=== PATIENT | male | born 1945 | race Two or more races ===

== ENCOUNTER 2019-02-10 05:10 | Day surgery (SDC) | payer OTHER ==
[~2019-02-10 05:10] MED LIST: LISINOPRIL20 MG PO
== END 2019-02-10 12:55 | disposition home or self-care (01) ==
LOC: CIR.AMB 05:10
DX: C67.0 Malignant neoplasm of trigone of bladder (principal); C67.2 Malignant neoplasm of lateral wall of bladder; C67.4 Malignant neoplasm of posterior wall of bladder; C67.5 Malignant neoplasm of bladder neck; N32.89 Other specified disorders of bladder; N30.20 Other chronic cystitis without hematuria

== ENCOUNTER → 2019-04-06 10:21 | Outpatient (CLI) | payer OTHER | END | disposition home or self-care (01) | LOC: LAB 10:21 | DX: N30.00 Acute cystitis without hematuria (principal); B96.89 Other specified bacterial agents as the cause of diseases classified elsewhere ==

== ENCOUNTER → 2019-04-21 14:36 | Outpatient (CLI) | payer OTHER | END | disposition home or self-care (01) | LOC: LAB 14:36 | DX: N30.00 Acute cystitis without hematuria (principal) ==

== ENCOUNTER → 2019-05-20 12:56 | Outpatient (CLI) | payer OTHER | END | disposition home or self-care (01) | LOC: LAB 12:56 | DX: N30.00 Acute cystitis without hematuria (principal) ==

== ENCOUNTER → 2019-07-14 14:21 | Outpatient (CLI) | payer OTHER | END | disposition home or self-care (01) | LOC: LAB 14:21 | DX: N30.00 Acute cystitis without hematuria (principal) ==

== ENCOUNTER 2019-07-28 16:12 | Outpatient (CLI) | payer OTHER | END 2019-07-28 16:16 | disposition home or self-care (01) | LOC: LAB 16:12 | DX: N30.00 Acute cystitis without hematuria (principal) ==

== ENCOUNTER 2019-09-27 13:36 | Outpatient (CLI) | payer OTHER | END 2019-09-27 13:39 | disposition home or self-care (01) | LOC: LAB 13:36 | DX: N30.00 Acute cystitis without hematuria (principal) ==

== ENCOUNTER → 2019-12-03 12:14 | Outpatient (CLI) | payer OTHER | END | disposition home or self-care (01) | LOC: LAB 12:14 | PROVIDERS: ATTEND Urology | DX: N30.00 Acute cystitis without hematuria (principal) ==

== ENCOUNTER 2020-06-24 12:14 | Outpatient (CLI) | payer OTHER | END 2020-06-24 12:21 | disposition home or self-care (01) | LOC: LAB 12:14 | PROVIDERS: ATTEND Urology | DX: N30.00 Acute cystitis without hematuria (principal); B96.29 Other Escherichia coli [E. coli] as the cause of diseases classified elsewhere ==

== ENCOUNTER 2020-07-10 10:48 | Outpatient (CLI) | payer OTHER | END 2020-07-10 10:55 | disposition home or self-care (01) | LOC: LAB 10:48 | PROVIDERS: ATTEND Urology | DX: C61 Malignant neoplasm of prostate (principal); N39.0 Urinary tract infection, site not specified; N39.41 Urge incontinence; C67.0 Malignant neoplasm of trigone of bladder ==

== ENCOUNTER 2021-02-16 11:03 | Outpatient (CLI) | payer OTHER | END 2021-02-16 11:04 | disposition home or self-care (01) | LOC: LAB 11:03 | PROVIDERS: ATTEND Urology | DX: N30.00 Acute cystitis without hematuria (principal); B96.89 Other specified bacterial agents as the cause of diseases classified elsewhere ==

== ENCOUNTER 2021-08-03 14:53 | Outpatient (CLI) | payer OTHER | END 2021-08-03 15:02 | disposition home or self-care (01) | LOC: LAB 14:53 | PROVIDERS: ATTEND Urology | DX: N30.00 Acute cystitis without hematuria (principal) ==